=== PATIENT | male | born 1985 | race Caucasian/White ===

== ENCOUNTER 2019-05-03 22:32 | Emergency (ER) | payer OTHER, BC ==
[~2019-05-03 22:32] MED LIST: LACT1CAP6 PO; NO HOME MEDS
[2019-05-03 22:37] VITALS: BP 141/87
--- NOTE | 2019-05-03 22:37 | ER Report ---
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 He landed poorly on his right ankle. There is notable lateral swelling. He notes 6/10 pain aggravated by ambulation. He denies any other injuries. Allergies: Coded Allergies: No Known Drug Allergies (Unverified , 05/03/19) Home Meds Reported Medications Lactobacillus Combination No.4 (PROBIOTIC) 1 Each Capsule, 1 EACH PO QDAY, CAPSULE 04/18/17 Reviewed Nurses Notes: Yes Old Medical Records Reviewed: Yes Hx Smoking: Yes (CHEWED 9 YEARS 1 CAN A WEEK) Smoking Status: Never Smoker Exposure to Second Hand Smoke?: No Hx Substance Use Disorder: No Hx Alcohol Use: Yes Constitutional Vital Sign - Last 24 Hours 05/03/19 22:37 Temp 98.4 Pulse 72 Resp 17 B/P (MAP) 141/87 Pulse Ox 97 O2 Delivery Room Air Physical Exam General appearance: Alert no distress. Limping on weightbearing Respiratory: Chest is non tender, lungs are clear to auscultation. Cardiac: Regular rate and rhythm Extremities: Examination of the right ankle reveals lateral soft tissue swelling. Patient notes pain around the lateral aspect as well as along the medial aspect of the ledbetter. All digits are neurovascularly intact. There is no pain on palpation over the base of the 5th metacarpal. There is no pain on compression of the heel or the forefoot. DIFFERENTIAL DIAGNOSIS: After history and physical exam differential diagnosis w as considered for sprain, strain, fracture, dislocation, contusion Medical Decision Making EKG/Imaging Imaging X-ray: Three-view right ankle was obtained. I viewed the images myself on the PACS system. My interpretation of the images is: No fracture, dislocation, lateral soft tissue swelling noted. The radiologist interpretation had no clinically significant variation from this interpretation. ED Course/Re-evaluation ED Course Patient was admitted to an examination room. H&P was done. The differential diagnoses was considered. On clinical examination. Patient has obviously sprained right ankle. Diagnostic x-rays were performed. There were no obvious fractures. Patient was placed in Renaldo wrap and air splint for protection. He's advised to take it easy for several days. He is advised to use ibuprofen and Tylenol for pain relief. Decision to Disposition Date: May 03, 2019 Decision to Disposition Time: 23:01 Depart Departure Latest Vital Signs Vital Signs Date Time Temp Pulse Resp B/P (MAP) Pulse Ox O2 Delivery O2 Flow Rate FiO2 05/03/19 22:37 98.4 72 17 141/87 97 Room Air Impression: Primary Impression: Right ankle sprain Condition: Improved Disposition: HOME OR SELF-CARE Referrals: CRISTINE LORA (PCP) Patient Instructions: Ankle Sprain (ED) Additional Instructions: Use Tylenol and ibuprofen for pain relief Wear Renaldo wrap and splint for compression and support Follow-up with [facility] if unimproved in 5-7 days, , address [address] Problem Qualifiers Primary Impression: Right ankle sprain Encounter type: initial encounter Involved ligament of ankle: unspecified ligament Qualified Codes: S93.401A - Sprain of unspecified ligament of right ankle, initial encounter KAMI CANADA DO May 03, 2019 22:37
--- NOTE | 2019-05-03 23:12 | RADIOLOGY IMAGING REPORT ---
FACILITY: [facility] [place] PATIENT NAME: Alexys Michael : 1985 MR: [id number] V: [id number] EXAM DATE: ORDERING PHYSICIAN: KAMI CANADA TECHNOLOGIST: Location: [facility] [place] Patient: Alexys Michael : 1985 Visit/Account:[id number] Date of Sevice: 05/03/2019 3 views right ankle INDICATION: injury lat swelling. Rolled ankle. COMPARISON: None Available FINDINGS: No definitive fractures. There is mild irregularity along the tip of the fibula which may be related to subtle avulsion injury. The ankle mortise is symmetric. There is no significant ankle joint effusion. Mild/moderate lateral soft tissue swelling. No evidence of radiopaque foreign body. IMPRESSION: 1. No definitive fractures. There is mild irregularity along the tip of the fibula which may be relat ed to subtle avulsion injury. 2. Mild/moderate lateral soft tissue swelling. Report Dictated By: Mert Azul MD at 05/03/2019 11:05 PM Report E-Signed By: Mert Azul MD at 05/03/2019 11:07 PM WSN:[id number]
== END 2019-05-03 23:28 | disposition home or self-care (01) ==
LOC: ER 22:45
DX: S93.401A Sprain of unspecified ligament of right ankle, initial encounter (principal)
CPT/HCPCS: 73610; 99283; L1930